=== PATIENT | female | born 1955 | race Caucasian/White ===

== ENCOUNTER 2025-05-25 12:30 | Outpatient (AMB) | payer MEDICARE, SELFPAY ==
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
[2025-05-25 12:38] VITALS: BP 126/70; PULSE 73; O2SAT 99; BMI 21.7
--- OUTSIDE RECORDS SUMMARY | 2025-05-25 13:11 | XMS_ITS | Encounter Summary ---
Author Organization [facility] Address [address] [place] [address] Care Team Providers Care Licensed [employer] App[employer] Name Role Phone Carlo Brito MD Primary Care Provider Encounter Details Date Type Department Care Team (Late st Contact Info) Description 08/11/2023 Scanned Document [facility] ENDO PROC [address] [id number] Rudi Mathur MD [address] [place] [id number] Social History Tobacco Use Types Packs/Day Years Used Date Smoking Tobacco: Never Smokeless Tobacco: Never Alcohol Use Standard Drinks/Week Comments Yes 0 (1 standard drink = 0.6 oz pur e alcohol) occasional Comments No Sex and Gender Information Value Date Recorded Sex Assigned at Female 11/04/2022 10:33 AM EDT Legal Sex Female 12:44 PM EDT Gender Identity Female 11/04/2022 10:33 AM EDT Sexual Orientation Other 11/04/2022 10 :33 AM EDT documented as of this encounter Plan of Treatment Not on file documented as of this encounter Procedures Procedure Name Priority Date/Time Associated Diagnosis Comments HX GASTROENTEROLOGY COLONOSCOPY-SCAN 08/11/2023 7:00 AM EST documented in this encounter Results * HX GASTROENTEROLOGY COLONOSCOPY-SCAN (08/11/2023 7:00 AM EST) us Rudi Mathur MD HX AMB PROCEDURES Final Resu lt documented in this encounter Visit Diagnoses Not on filedocumented in this encounter Care Teams Licensed [employer] App[employer] Relationship Specialty Start Date End Date Carlo Brito MD PCP - General Internal Medicine 04/30/17 documented as of this encounter
--- OUTSIDE RECORDS SUMMARY | 2025-05-25 13:11 | XMS_ITS | Clinical Summary ---
Author Organization [facility] Address [address] [place] [id number] Care Team Providers Care Gang Boss Name Role Phone Carlo Brito MD Primary Care Provider Allergies No known active allergies Medications citalopram (CeleXA) 20 MG tablet Take 20 mg by mouth daily. 0 Active levothyroxine (SYNTHROID, LEVOTHROID) 75 MCG tablet TAKE ONE TABLET BY MOUTH DAILY BEFORE BREAKFAST 0 Active zolpidem (AMBIEN) 10 MG tablet 1 Active ALPRAZolam (XANAX) 0.25 MG tablet TAKE 1 TABLET (0.25 MG) BY MOUTH EVERY DAY NEEDED 3 Active Active Problems No known active problems Immunizations Immunization Administration Dates Next Due Influenza High-Dose Quadriva lent,(FLUZONE HIGH-DOSE), Perservative Free IM 0.7 mL 65 years and older 05/16/2021,05/15/2020 Influenza, Quadrivalent (FLU ARIX, AFLURIA, FLULAVAL, FLUZONE) Preservative Free IM 06/04/2022 Influenza, Quadrivalent (FLU CELVAX) MDCK, Preservative Free IM 06/09/2023 Pneumococcal Conjugate 13-Valent 05/16/2021 Family History Medical History Relation Name Comments Colon polyps Brother Colon cancer Paternal Grandmother Relation Name Status Comments Brother Paternal Grandmother Social History Tobacco Use Types Packs/Day Years [...] Orientation Other 11/04/2022 10 :33 AM EDT Last Filed Vital Signs Vital Sign Reading Time Taken Comments Blood Pressure 157/81 01/16/2025 11:39 AM EDT Pulse 63 01/16/2025 11:39 AM EDT Temperature 36.1 C (96.9 F) 01/16/2025 11:39 AM EDT Respiratory Rate 14 01/16/2025 11:39 AM EDT Oxygen Saturation 100% 01/16/2025 11:39 AM EDT Inhaled Oxygen Concentration - - Weight 52.2 kg (115 lb) 01/16/2025 10:01 AM EDT Height 154.9 cm (5' 1 ) 08/11/2023 7:40 AM EST Body Mass Index 21.73 08/11/2023 7:40 AM EST Plan of Treatment Health Maintenance Due Date Last Done Comments Advance Care Planning 1955 Hepatitis C Virus Screening 1955 DTaP/Tdap/Td Vaccines (1 - Tdap) 1973 Zoster (Shingles) Vaccine (1 of 2) 2004 Pneumococcal Vaccines 50+ (2 of 2 - PCV20 or PCV21) 05/16/2022 05/16/2021 Influenza Vaccine 03/23/2025 06/13/2024, , 06/09/2023, Additional history exists COVID-19 Vaccine (2 - season) 2025 06/18/2021 DXA Bone Density (Females,Ages 65 and older) 07/09/2025 07/09/2023 Mammogram 06/14/2026 06/14/2024, 05/24, 06/04/2022, Additional history exists RSV Vaccine 60 years and older and Patients (1 - 1-dose 75+ series) 2029 Colonoscopy 08/11/2033 08/11/2023, 08/11/2023 Hepatitis B Vaccines Aged Out No long er eligible based on patient's age to complete this topic Medical Devices Implanted Type Area Hydraulic Operator Device Identifier Shelf Expiration Date Model / Serial / Lot Lens Iol 0 D +22.5 Edmundo Mod L Bcnvx 13mm 6mm Posterior - [id number] Implanted:Qty: 1 on 08/04/2017 by Roque Clement MD at [facility] [place] [employer] [id number] / [id number] / Lens Iol 0 D +21.5 Edmundo Mod L Bcnvx 13mm 6mm Posterior - [id number] Implanted:Qty: 1 on 05/25/2018 by Roque Clement MD at [facility] [place] [employer] [id number] / [id number] / Procedures Procedure Name Priority Date/Time Associated Diagnosis Comments MM MAMMO SCREENING W/ TOMOSYNTHESIS BILATERAL Routine 06/14/2024 11:40 AM EDT Encounter for screening mammogram for breast cancer HX GASTROENTEROLOGY COLONOSCOPY-SCAN 08/11/2023 7:00 AM EST DEXA BONE DENSITY AXIAL SKELETON, 1 OR MORE SITES Routine 07/09/2023 9:53 AM EST Osteoporosis, unspecified osteoporosis type, unspecified pathological fracture presence Post-menopausal from Last 3 Months or Most Recently Relevant to Health Maintenance Results * MM Breast tomosynthesis screening-Bilateral (06/14/2024 11:40 AM EDT) Anatomical Region Laterality Modality Breast Bilateral Mammography 06/14/2024 1:40 PM EDT Impressions 06/14/2024 1:41 PM EDT Impression: Stable mammogram. Routine annual screening advised. ASSESSMENT: ACR Category 1 - Negative. BREAST COMPOSITION: Category B FOLLOW-UP RECOMMENDATION: 1 year. BIRADS: A NEGATIVE MAMMOGRAM FOLLOW-UP CODES: D12 12 MONTH MAMMOGRAM FOLLOW-UP Narrative 06/14/2024 1:41 PM EDT Screening digital mammogram with CAD [id number] History: Screening Comparison: Dating back 02/13/2019 Breast composition: Scattered fibroglandular densities CAD and 3-D tomography was applied on this mammographic procedure. Findings: No new densities or suspicious microcalcifications can be identified in either breast. Carlo Brito MD G MAMMOGRAPHY ORDERABLES Final Result * HX GASTROENTEROLOGY COLONOSCOPY-SCAN (08/11/2023 7:00 AM EST) Rudi Mathur MD HX AMB PROCEDURES Final Resu lt * DEXA Bone Density axial skeleton, 1 or more sites (07/09/2023 9:53 AM EST) Anatomical Region Laterality Modality Digital Radiogra phy 07/09/2023 12:5 0 PM EST Impressions 07/09/2023 12:50 PM EST Findings and impression: Please see scanned report for data values and impression. Narrative 07/09/2023 12:50 PM EST DXA Bone Densitometry Report Indication: Bone density Procedure Note Eulogio Pike MD - 07/09/2023 DXA Bone Densitometry Report Indication: Bone density IMPRESSION: Findings and impression: Please see scanned report for data values and impression. Carlo Brito MD [facility] DXA ORDERABLES Final Re sult from Last 3 Months or Most Recently Relevant to Health Maintenance Insurance [employer] MGD MEDICARE MEDICARE PART A & B [facility] MEDICARE [facility] MEDICARE Care Teams Gang Boss Relationship Specialty Start Date End Date Carlo Brito MD PCP - General Internal Medicine 04/30/17
--- OUTSIDE RECORDS SUMMARY | 2025-05-25 13:11 | XMS_ITS | Clinical Summary ---
Author Organization [facility] [address] [facility] Address [address] [place] [address] Phone Care Team Providers Care Lock Expert Name Role Phone Carlo Brito MD Primary Care Provider [phone] Allergies No known active allergies Medications citalopram (CeleXA) 20 mg tablet Take 1 tablet (20 mg total) by mouth 1 (one) time each day. 11/19/19 25 Active levothyroxine (SYNTHROID, LEVOTHROID) 75 mcg tablet Take 1 tablet (75 mcg total) by mouth 1 (one) time each day. before breakfast 90 tablet 1 04/02/20 25 Active zolpidem (AMBIEN) 10 mg tabletIndicatio ns:Insomnia, unspecified type Take 1 tablet (10 mg total) by mouth at bedtime as needed for sleep. Max Daily Amount: 10 mg 30 tablet 04/02/20 25 Active cyanocobalamin (VITAMIN B-12) 1,000 mcg/mL injection Inject 1 mL (1,000 mcg total) under the skin every 30 (thirty) days. 3 mL 1 05/22/20 25 Active syringe with needle 1 mL 25 gauge x 1 syringe 1 each every 30 (thirty) days. 100 each 05/22/20 25 Active cyanocobalamin (VITAMIN B-12) 1,000 mcg/mL injection Inject 1 mL (1,000 mcg total) into the shoulder, thigh, or buttocks every 30 (thirty) days. 1 mL 04/27/20 25 025 Discontinued cyanocobalamin (VITAMIN B-12) 1,000 mcg/mL injection INJECT 1 ML INTO THE SHOULDER,THI GH,OR BUTTOCKS EVERY 30 DAYS 3 mL 1 05/21/20 25 025 Discontinued(Re order) syringe with needle 1 mL 25 gauge x 1 syringe 025 Discontinued(Re order) Hospital, Clinic, or Other Facility Administered Medication Ordered Dose Route Frequency Start Date End Date Status cyanocobalamin (VITAMIN B-12) injection 1,000 mcgIndications:B12 deficiency 1000 mcg IM Every 30 days 03/02/2025 05/21/2025 Discontinue d Active Problems Problem Noted Date Diagnosed Date Elevated alkaline phosphatase level 03/08/2025 B12 deficiency 02/02/2025 Assessment & Plan (03/02/2025 11:41 AM EDT): Orders: cyanocobalamin (VITAMIN B-12) injection 1,000 mcg Assessment & Plan (02/02/2025 11:55 AM EDT): Orders: cyanocobalamin (VITAMIN B-12) injection 1,000 mcg Follow-up in 1 month Adrenal nodule (CMS/HCC V24) 01/23/2025 Duodenal diverticulum 01/23/2025 Pelvic pressure in female 01/09/2025 Nonintractable headache 01/09/2025 Right upper quadrant abdominal pain 01/09/2025 Encounters Date Type Department Care Team Description 05/22/2025 Telephone Primary [facility] - [facility] [address] [place] [address] Sharon Sampson MA 04/27/2025 1:45 PM EDT Clinical Support Primary [facility] - [facility] [address] [place] [address] 04/02/2025 Telephone Primary [facility] - [facility] [address] [place] [address] Beatris Luz MA 03/08/2025 Telephone Primary [facility] - [facility] [address] [place] [address] Carlo Brito MD 03/02/2025 10:15 AM EDT Office Visit Primary [facility] - [facility] [address] [place] [phone] Carlo Brito MD B12 deficiency; Viral syndrome; Autoinflammatory syndrome, unspecified ([facility] V24, [facility] V28) from Last 3 Months Immunizations Immunization Administration Dates Next Due Influenza trivalent, with pr eservative (Fluzone; Afluria) 6mo and older 06/13/2024 Pneumococcal Conjugate 05/16/2021 Pneumococcal conjugate 20 va lent (Prevnar 20, PCV 20) 2mo and older 05/16/2021 Tdap Tetanus diptheria acell ular pertussis (Boostrix; Adacel) 7yo and older 12/25/2014 Surgical History Surgery Date Site/Laterality Comments APPENDECTOMY CATARACT EXTRACTION 01/21/2017 - 02/19/2017 Right CERVICAL DISC SURGERY CHOLECYSTECTOMY ADENOIDECTOMY TONSILLECTOMY TOTAL ABDOMINAL HYSTERECTOMY W/ BILATERAL SALPINGOOPHORECTOMY COLECTOMY 05/23/2013 - 06/22/2013 Medical History Medical History Date Comments Diverticulosis IBS (irritable bowel syndrome) Hypothyroidism Tinnitus Insomnia Ambien dependent Family History Medical History Relation Name Comments Hyperlipidemia Brother 1 Hypertension Brother 1 Diabetes type II Brother 2 Diabetes type II Father Heart attack Mother Hypothyroidism Mother Relation Name Status Comments Brother 1 Brother 2 Alive Brother 3 Alive Brother 4 Alive Father Mother Social History Tobacco Use Types Packs/Day Years Used Date Smoking Tobacco: Former Cigarettes S tarted: 1982 Smokeless Tobacco: Never Tobacco Cessation:Counseling Given: Not Answered Alcohol Use Standard Drinks/Week Comments Yes 1 (1 standard drink = 0.6 oz pur e alcohol) social Comments Unknown Sex and Gender Information Value Date Recorded Sex Assigned at Not on file Legal Sex Female 9:05 AM EDT Gender Identity Not on file Sexual Orientation Not on file 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 Not on file Not on brisa e Obstetrics History Last Filed Vital Signs Vital Sign Reading Time Taken Comments Blood Pressure 122/63 03/02/2025 10:15 AM EDT Pulse 78 03/02/2025 10:15 AM EDT Temperature 36.8 C (98.3 F) 03/02/2025 10:15 AM EDT Respiratory Rate - - Oxygen Saturation 99% 03/02/2025 10: 15 AM EDT Inhaled Oxygen Concentration - - Weight 52.6 kg (115 lb 14.4 oz) 025 10:15 AM EDT Height 153.7 cm (5' 0.5 ) 12/15/2024 8:42 AM EDT Body Mass Index 22.26 12/15/2024 8:42 AM EDT Plan of Treatment Health Maintenance Due Date Last Done Comments Zoster Vaccines (1 of 2) 2004 Falls Risk Assessment 12/08/2024 12/09/2023 Social Influencers of Health Screening 12/08/2024 12/09/2023 Medicare Annual Wellness Visit 12/19/2024 12/20/2023, 12/09/2023 DTaP,Tdap,and Td Vaccines (2 - Td or Tdap) 12/25/2024 12/25/2014 COVID-19 Vaccine (2 - season) 2025 06/18/2021 Influenza Vaccine (#1) 2025 , 06/09/2023, 06/04/2022, Additional history exists Breast Cancer Screening 06/14/2025 06/14/2024, 06/14 RSV Immunization Adult Patients (1 - 1-dose 75+ series) 2029 Cholesterol Screening (Lipid Panel) 12/15/2029 12/15/2024, 12/09/2023 Osteoporosis Screening (Bone Density Screening) 07/09/2033 07/09/2023, 07/09/2023 Colorectal Cancer Screening: Colonoscopy 08/11/2033 08/11/2023 Hepatitis C Screening Completed 06/11/2015, 015 Pneumococcal Vaccine: 50+ Years Completed 05/16/2021 Depression Screening Completed 12/15/2024 HIB Vaccines Aged Out No longer eligi ble based on patient's age to complete this topic HPV Vaccines Aged Out No longer eligi ble based on patient's age to complete this topic Hepatitis A Vaccines Aged Out No long er eligible based on patient's age to complete this topic Hepatitis B Vaccines Aged Out No long er eligible based on patient's age to complete this topic IPV Vaccines Aged Out No longer eligi ble based on patient's age to complete this topic MMR Vaccines Aged Out No longer eligi ble based on patient's age to complete this topic Meningococcal ACWY Vaccine Aged Out N o longer eligible based on patient's age to complete this topic Meningococcal B Vaccine Aged Out No l onger eligible based on patient's age to complete this topic RSV Immunization Patients Under 20 months Aged Out No longer eligible based on patient's age to complete this topic Varicella Vaccines Aged Out No longer eligible based on patient's age to complete this topic Procedures Procedure Name Priority Date/Time Associated Diagnosis Comments EHRLICHIA AND ANAPLASMA SPECIES BY REAL-TIME PCR Routine 03/02/2025 4:03 PM EDT Adult general medical examination Viral syndrome Autoinflammatory syndrome, unspecified ([facility] V24, [facility] V28) URINALYSIS WITH REFLEX MICROSCOPIC Routine 03/02/2025 10:57 AM EDT Adult general medical examination BABESIA MICROTI ANTIBODIES, IGG AND IGM Routine 03/02/2025 10:57 AM EDT Viral syndrome BORRELIA BURGDORFERI ANTIBODIES IGG AND IGM,WESTERN BLOT Routine 03/02/2025 10:57 AM EDT Viral syndrome THYROID STIMULATING HORMONE Routine 03/02/2025 10:57 AM EDT Viral syndrome Autoinflammatory syndrome, unspecified ([facility] V24, [facility] V28) COMPREHENSIVE METABOLIC PANEL Routine 03/02/2025 10:57 AM EDT Viral syndrome COMPLETE BLOOD COUNT Routine 03/02/2025 10:57 AM EDT Viral syndrome URINALYSIS WITH REFLEX MICROSCOPIC Routine 03/02/2025 10:57 AM EDT Adult general medical examination LIPID PANEL WITH REFLEX TO DIRECT LDL Routine 12/15/2024 9:35 AM EDT Adult general medical examination EXTERNAL MAMMOGRAM REPORT Routine 06/14/2024 9:17 AM EDT EXTERNAL COLONOSCOPY REPORT Routine 08/11/2023 9:10 AM EST HM HEPATITIS C SCREENING Routine 05/23/2015 from Last 3 Months or Most Recently Relevant to Health Maintenance Results * Ehrlichia and anaplasma species, PCR (03/02/2025 4:03 PM EDT) Anaplasma phagocytophilum Negative Negative 03/05/2025 4:[address] [facility] Ehrlichia chaffeensis Negative Negative 03/05/2025 4:[address] [facility] Ehrlichia ewingii/canis Negative Negative 03/05/2025 4:[address] [facility] Ehrlichia muris eauclairensis Negative Negative 03/05/2025 4:[address] [facility] Comment: ADDITIONAL INFORMATION This test was developed and its performance characteristics determined by [facility] in a manner consistent with CLIA requirements. This test has not been cleared or approved by the U.S. Food and Drug Administration. Test Performed by: [place] [address] Service Unit Operator: Franco Evans Ph.D.; CLIA# [id number] Blood Venous blood specimen / Unknown Venipuncture / Unknown 03/02/2025 4:03 PM EDT 03/02/2025 4:03 PM EDT us Carlo Brito MD LAB MICROBIOLOGY - GENERAL ORDERABLES Final Result [facility] * (ABNORMAL) Urinalysis with reflex microscopic (03/02/2025 10:57 AM EDT) Color, Urine Yellow Yellow LAB URINALYSIS - AUTOMATED METHOD 03/02/2025 3:49 PM EDT [facility] Clarity, Urine Clear Clear LAB URINALYSIS - AUTOMATED METHOD 03/02/2025 3:49 PM EDT [facility] Specific [place] Urine 1.025 1.005 - 1.030 LAB URINALYSIS - AUTOMATED METHOD 03/02/2025 3:49 PM EDT [facility] pH, Urine 7.5 5.0 - 8.0 pH LAB URINALYSIS - AUTOMATED METHOD 03/02/2025 3:49 PM EDT [facility] Leukocytes, Urine 25(A) Negative WBCs/mcL LAB URINALYSIS - AUTOMATED METHOD 03/02/2025 3:49 PM EDT [facility] Nitrite, Urine Negative Negative LAB URINALYSIS - AUTOMATED METHOD 03/02/2025 3:49 PM EDT [facility] Protein, Urine Negative Negative mg/dL LAB URINALYSIS - AUTOMATED METHOD 03/02/2025 3:49 PM EDT [facility] Glucose, Urine Normal Normal mg/dL LAB URINALYSIS - AUTOMATED METHOD 03/02/2025 3:49 PM EDT [facility] Ketones, Urine Negative Negative, <10 mg/dL LAB URINALYSIS - AUTOMATED METHOD 03/02/2025 3:49 PM EDT [facility] Urobilinogen, Urine Normal Normal (<2.0) mg/dL LAB URINALYSIS - AUTOMATED METHOD 03/02/2025 3:49 PM EDT [facility] Bilirubin, Urine Negative Negative mg/dL LAB URINALYSIS - AUTOMATED METHOD 03/02/2025 3:49 PM EDT [facility] Blood, Urine Negative <=1.0 mg/dL LAB URINALYSIS - AUTOMATED METHOD 03/02/2025 3:49 PM EDT [facility] Urine Urine specimen obtained by clean catch procedure / Unknown Non-blood Collection / Unknown 03/02/2025 10:57 AM EDT 03/02/2025 10:57 AM EDT us Carlo Brito MD LAB URINE ORDERABLES Final Result [facility] [address] [place] [address], * Borrelia burgdorferi antibodies IgG and IgM, western blot (03/02/2025 10:57 AM EDT) Lyme Disease Ab (IgG), Blot Negative Negative 03/07/2025 11:49 AM EDT [facility] Comment: 18 kD (IgG) Band Nonreactive 23 kD (IgG) Band Nonreactive 28 kD (IgG) Band Nonreactive 30 kD (IgG) Band Nonreactive 39 kD (IgG) Band Nonreactive 41 kD (IgG) Band Nonreactive 45 kD (IgG) Band Reactive 58 kD (IgG) Band Nonreactive 66 kD (IgG) Band Reactive 93 kD (IgG) Band Nonreactive Lyme Disease Ab (IgM), Blot Negative Negative 03/07/2025 11:49 AM EDT [facility] Comment: 23 kD (IgM) Band Nonreactive 39 kD (IgM) Band Nonreactive 41 kD (IgM) Band Nonreactive CDC criteria require >=5 bands for IgG or >=2 bands for IgM for the Immunoblot to be considered positive. Bands may be detected in patients without Lyme disease, and patterns not meeting the CDC criteria should be interpreted with caution. Immunoblot should be ordered only on specimens that are positive or equivocal by a FDA-licensed Lyme disease antibody screening test. Caution must be used in supporting a diagnosis of B. burgdorferi infection when sera are Immunoblot IgM positive and Immunoblot IgG negative after the initial 4 week period from onset. Because the likelihood of a false-positive test result is high for these individuals, a positive IgM test alone is not recommended for use in determining active disease in persons with illness longer than one month duration. Test performed at [facility], [address] , [place] [address] Alysha Mensah MD, PhD - Laundry Assistant Blood Venous blood specimen / Unknown Venipuncture / Unknown 03/02/2025 10:57 AM EDT 03/02/2025 10:57 AM EDT us Carlo Brito MD LAB BLOOD ORDERABLES Final Result [facility] [address] [place] [address] * Babesia microti antibodies, IGG and IGM (03/02/2025 10:57 AM EDT) Babesia microti Ab (IgG) <1:64 <1:64 03/06/2025 6:29 PM EDT [facility] Babesia microti Ab (IgM) <1:20 <1:20 03/06/2025 6:29 PM EDT [facility] Babesia Interpretation SEE BELOW 03/06/2025 6:29 PM EDT [facility] Comment: Antibody Not Detected Elevated antibody levels to B. microti indicate exposure to the organism. Human babesiosis infection is transmitted by the bite of an infected Ixodes tick or less frequently from transfusion with blood from an infected donor. Definitive diagnosis is made by identifying intraerythrocytic organisms in peripheral blood. In patients with low parasitemia, antibody detection by IFA is recommended. IgG levels greater than or equal to 1:1024 can be detected in acute phase patients with parasites in blood smears. The IFA assay can be used as a seroepidemiologic tool to study the frequency and distribution of B. microti in endemic areas especially in persons with mixed infections also involving Borrelia burgdorferi. This test was developed and its analytical performance characteristics have been determined by [employer] [place] [place]. It has not been cleared or approved by the U.S. Food and Drug Administration. This assay has been validated pursuant to the CLIA regulations and is used for clinical purposes. Blood Venous blood specimen / Unknown Venipuncture / Unknown 03/02/2025 10:57 AM EDT 03/02/2025 10:57 AM EDT Narrative [facility] - 03/06/2025 6:29 PM EDT Performing Organization Information: Site ID: [id number] Name: [id number] Address: [address] [place] [address] Director: Matthew Bryant MD PhD us Carlo Brito MD LAB BLOOD ORDERABLES Final Result [facility] [place] [id number] [place], [place] [phone] * (ABNORMAL) Complete blood count (03/02/2025 10:57 AM EDT) [facility] WBC 5.0 4.0 - 10.5 K/mcL LAB HEMETOLOGY METHOD 03/02/2025 3:49 PM EDT [facility] RBC 4.44 4.20 - 5.40 M/mcL LAB HEMETOLOGY METHOD 03/02/2025 3:49 PM EDT [facility] Hemoglobin 12.7 12.5 - 16.0 g/dL LAB HEMETOLOGY METHOD 03/02/2025 3:49 PM EDT [facility] Hematocrit 39.8 37.0 - 47.0 % LAB HEMETOLOGY METHOD 03/02/2025 3:49 PM EDT [facility] MCV 89.6 78.0 - 100.0 FL LAB HEMETOLOGY METHOD 03/02/2025 3:49 PM EDT [facility] MCH 28.6 27.0 - 31.0 pcg LAB HEMETOLOGY METHOD 03/02/2025 3:49 PM EDT [facility] MCHC 31.9(L) 32.0 - 36.0 g/dL LAB HEMETOLOGY METHOD 03/02/2025 3:49 PM EDT [facility] RDW 13.1 11.5 - 14.0 % LAB HEMETOLOGY METHOD 03/02/2025 3:49 PM EDT [facility] Platelets 337 150 - 450 K/mcL LAB HEMETOLOGY METHOD 03/02/2025 3:49 PM EDT [facility] MPV 10.1 8.3 - 11.8 FL LAB HEMETOLOGY METHOD 03/02/2025 3:49 PM EDT [facility] Blood Venous blood specimen / Unknown Venipuncture / Unknown 03/02/2025 10:57 AM EDT 03/02/2025 10:57 AM EDT us Carlo Brito MD LAB BLOOD ORDERABLES Final Result [facility] [address] [place] [address], * Thyroid stimulating hormone (03/02/2025 10:57 AM EDT) TSH 1.94 0.55 - 4.78 mcIU/mL LAB CHEMISTRY METHOD 03/02/2025 4:04 PM EDT [facility] Blood Venous blood specimen / Unknown Venipuncture / Unknown 03/02/2025 10:57 AM EDT 03/02/2025 10:57 AM EDT Carlo Brito MD LAB BLOOD ORDERABLES Final Result Performing Organization Address City/[facility]/ZIP Co de Phone Number [facility] [address] [place] [address], * (ABNORMAL) Comprehensive metabolic panel (03/02/2025 10:57 AM EDT) Pathologist [facility] Sodium 144 136 - 145 mmol/L LAB CHEMISTRY METHOD 03/02/2025 4:01 PM EDT [facility] Potassium 3.9 3.5 - 5.1 mmol/L LAB CHEMISTRY METHOD 03/02/2025 4:01 PM EDT [facility] Chloride 104 98 - 107 mmol/L LAB CHEMISTRY METHOD 03/02/2025 4:01 PM EDT [facility] CO2 30 20 - 31 mmol/L LAB CHEMISTRY METHOD 03/02/2025 4:01 PM EDT [facility] Anion Gap 10 5 - 14 LAB CHEMISTRY METHOD 03/02/2025 4:01 PM EDT [facility] Glucose 99 70 - 199 mg/dL LAB CHEMISTRY METHOD 03/02/2025 4:01 PM EDT [facility] BUN 23 9 - 23 mg/dL LAB CHEMISTRY METHOD 03/02/2025 4:01 PM [facility] Creatinine 0.69 0.55 - 1.02 mg/dL LAB CHEMISTRY METHOD 03/02/2025 4:01 PM [facility] eGFR 93 >=60 mL/min/1. 73m2 LAB CHEMISTRY METHOD 03/02/2025 4:01 PM [facility] Comment:Calculation based on the Chronic Kidney Disease Epidemiology Collaboration (CKD-EPI) equation refit without adjustment for race. BUN/Creatinine Ratio 33.3(H) 12.0 - 20.0 LAB CHEMISTRY METHOD 03/02/2025 4:01 PM [facility] Calcium 9.3 8.7 - 10.4 mg/dL LAB CHEMISTRY METHOD 03/02/2025 4:01 PM [facility] AST (SGOT) 35(H) <34 unit/L LAB CHEMISTRY METHOD 03/02/2025 4:01 PM [facility] ALT (SGPT) 46 10 - 49 unit/L LAB CHEMISTRY METHOD 03/02/2025 4:01 PM [facility] Alkaline Phosphatase 165(H) 46 - 116 unit/L LAB CHEMISTRY METHOD 03/02/2025 4:01 PM [facility] Total Protein 7.1 5.7 - 8.2 g/dL LAB CHEMISTRY METHOD 03/02/2025 4:01 PM [facility] Globulin, Total 2.4 2.3 - 3.5 g/dL LAB CHEMISTRY METHOD 03/02/2025 4:01 PM [facility] A/G Ratio 2.0(H) 1.0 - 1.7 LAB CHEMISTRY METHOD 03/02/2025 4:01 PM [facility] Total Bilirubin 0.3 0.2 - 1.1 mg/dL LAB CHEMISTRY METHOD 03/02/2025 4:01 PM [facility] Albumin 4.7 3.2 - 4.8 g/dL LAB CHEMISTRY METHOD 03/02/2025 4:01 PM EDT [facility] Blood Venous blood specimen / Unknown Venipuncture / Unknown 03/02/2025 10:57 AM EDT 03/02/2025 10:57 AM EDT us Carlo Brito MD LAB BLOOD ORDERABLES Final Result [facility] [address] [place] [address], [place] [phone] * (ABNORMAL) Lipid panel with reflex to direct LDL (12/15/2024 9:35 AM EDT) Cholesterol 203(H) 25 - 200 mg/dL LAB CHEMISTRY METHOD 12/15/2024 3:54 PM EDT [facility] Triglycerides 82 See Comment mg/dL LAB CHEMISTRY METHOD 12/15/2024 3:54 PM EDT [facility] HDL 70 >60 mg/dL LAB CHEMISTRY METHOD 12/15/2024 3:54 PM EDT [facility] LDL Calculated 117(H) 0 - 99 mg/dL LAB CHEMISTRY METHOD 12/15/2024 3:54 PM EDT [facility] VLDL Cholesterol Erasmo 16.4 mg/dL LAB CHEMISTRY METHOD 12/15/2024 3:54 PM EDT [facility] Non HDL Chol. (LDL+VLDL) 133 mg/dL LAB CHEMISTRY METHOD 12/15/2024 3:54 PM EDT [facility] Chol/HDL Ratio 2.9 LAB CHEMISTRY METHOD 12/15/2024 3:54 PM EDT [facility] Blood Venous blood specimen / Unknown Venipuncture / Unknown 12/15/2024 9:35 AM EDT 12/15/2024 9:35 AM EDT Narrative [facility] - 12/15/2024 3:54 PM EDT CHOLESTEROL REFERENCE RANGES: <200 mg/dL DESIRABLE 200-240 mg/dL BORDERLINE HIGH >240 mg/dL HIGH TRIGLYCERIDE REFERENCE VALUES: <150 mg/dL DESIRABLE 150-199 mg/dL BORDERLINE HIGH >200 mg/dL HIGH HDL REFERENCE VALUES: >60 mg/dL DESIRABLE <40 mg/dL HIGH RISK LDL Reference Ranges <100 mg/dL Desirable 100 - 129 mg/dL Low Risk 130 - 159 mg/dL Borderline High Risk 160 - 189 mg/dL High Risk >189 mg/dL Very High Risk RISK ASSESSMENT MALE: 12 AVERAGE: 3.43 AVERAGE: 4.97 2X AVERAGE: 9.55 3X AVERAGE: 23.39 FEMALE: 12 AVERAGE: 3.27 AVERAGE: 4.44 2X AVERAGE: 7.05 3X AVERAGE: 11.04 Carlo Brito MD LAB BLOOD ORDERABLES Final Result [facility] [address] [place] [address], * External Mammogram Report (06/14/2024 9:17 AM EDT) Anatomical Region Laterality Modality Mammography Historical Provider IMG BI PROCEDURES Final R esult * External Colonoscopy Report (08/11/2023 9:10 AM EST) Anatomical Region Laterality Modality Endoscopy Historical Provider GI~PROCEDURE ORDERABLES F inal Result * Hepatitis C Screening (05/23/2015) Hepatitis C Screening neg Historical Provider HEALTH MAINTENANCE Final Result from Last 3 Months or Most Recently Relevant to Health Maintenance Insurance [employer] Member Subscriber Plan / Payer (Ef fective 2021-Present) Name:Juliana Li Relation to Subscriber:Self Name:Juliana Li Payer ID:[id number] ([facility]) Type:Not on file Address: [facility] [id number] [place] [phone] Care Teams Lock Expert Relationship Specialty Start Date End Date Carlo Brito MD [address] [place] [address] PCP - General Internal Medicine 11/22/24
--- OUTSIDE RECORDS SUMMARY | 2025-05-25 13:11 | XMS_ITS | Encounter Summary ---
Author Organization [facility] Address [address] [place] [address] Care Team Providers Care Parent Coach Name Role Phone Carlo Brito MD Primary Care Provider [phone] Reason for Visit * Reason Onset Date Comments Med Refill 05/22/2025 Encounter Details Date Type Department Care Team (Late st Contact Info) Description 05/22/2025 Telephone Primary Care - [address] [phone] Sharon Sampson MA Social History Tobacco Use Types Packs/Day Years Used Date Smoking Tobacco: Former Cigarettes S tarted: 1982 Smokeless Tobacco: Never Alcohol Use Standard Drinks/Week Comments Yes 1 (1 standard drink = 0.6 oz pur e alcohol) social Comments Unknown Sex and Gender Information Value Date Recorded Sex Assigned at Not on file Legal Sex Female 9:05 AM EDT Gender Identity Not on file Sexual Orientation Not on file 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 100 each 05/22/2025 cyanocobalamin (VITAMIN B-12) 1,000 mcg/mL injection Inject 1 mL (1,000 mcg total) under the skin every 30 (thirty) days. 3 mL 1 05/22/2025 documented in this encounter Progress Notes * Adrianna Velazquez MA - 05/22/2025 10:37 AM EDT Rx sent as requested * Sharon Sampson MA - 05/22/2025 10:31 AM EDT cyanocobalamin (VITAMIN B-12) 1,000 mcg/mL injection [[id number] Patient received the injection but she needs the needles/syringes called as well. [id number] - [place] - [address] [place] [address] documented in this encounter Plan of Treatment Not on file documented as of this encounter Visit Diagnoses Not on filedocumented in this encounter Discontinued Medications Medication Sig Discontinue Reason Start Date End Da te cyanocobalamin (VITAMIN B-12) 1,000 mcg/mL injection INJECT 1 ML INTO THE SHOULDER,THIGH,OR BUTTOCKS EVERY 30 DAYS Reorder 05/21/2025 05/22/2025 syringe with needle 1 mL 25 gauge x 1 syringe Reorder 05/22/2025 documented as of this encounter Historical Medications * This list may reflect changes made after this encounter. Medication Sig Dispense Quantity Refills Last Filled Start D ate End Date syringe with needle 1 mL 25 gauge x 1 syringe 05/22/2025 added in this encounter Additional Health Concerns Assessment Noted Time PHQ-9 Depression Total Score: 0 12/16/19 25 8:45 AM EDT documented as of this encounter Care Teams Parent Coach Relationship Specialty Start Date End Date Carlo Brito MD [address] [place] [address] PCP - General Internal Medicine 11/22/24 documented as of this encounter
--- OUTSIDE RECORDS SUMMARY | 2025-05-25 13:11 | XMS_ITS ---
Author Name [facility] Organization Unknown Results Test Name/Text Value Interpretation Date Range Source E muris eaucl groEL Bld Ql CHRISTELLE+non-prb Negative 03/05/2025 - [facility] E chaff groEL Bld Ql CHRISTELLE+non-probe Negative 03/05/2025 - [facility] E canis+ewin groEL Bld Ql CHRISTELLE+non-probe Negative 03/05/2025 - [facility] A phago groEL Bld Ql CHRISTELLE+non-probe Negative 03/05/2025 - [facility] B burgdor IgG Ser Ql IB Negative 03/07/2025 - [facility] B burgdor IgM Ser Ql IB Negative 03/07/2025 - [facility] B microti IgG+IgM Ser-Imp SEE BELOW 03/06/2025 [facility] B microti IgM Titr Ser <1:20 03/06/2025 - [facility] B microti IgG Titr Ser <1:64 03/06/2025 - [facility] TSH SerPl DL<=0.005 mIU/L-aCnc 1.94 mcIU/mL 03/02/2025 0.55 - 4.78 [facility] CO2 SerPl-sCnc 30.0 mmol/L 03/02/2025 20 - 31 [facility] Bilirub SerPl-mCnc 0.3 mg/dL 03/02/2025 0.2 - 1.1 [facility] Anion Gap SerPl Calc-sCnc 10.0 03/02/2025 5 - 14 [facility] Prot SerPl-mCnc 7.1 g/dL 03/02/2025 5.7 - 8.2 [facility] Creat SerPl-mCnc 0.69 mg/dL 03/02/2025 0.55 - 1.02 [facility] Calcium SerPl-mCnc 9.3 mg/dL 03/02/2025 8.7 - 10.4 [facility] ALP SerPl-cCnc 165.0 unit/L Above high normal 03/02/2025 46 - 116 [facility] BUN SerPl-mCnc 23.0 mg/dL 03/02/2025 9 - 23 [facility] Chloride SerPl-sCnc 104.0 mmol/L 03/02/2025 98 - 1 07 [facility] AST SerPl-cCnc 35.0 unit/L Above high normal 03/02/2025 - 34 [facility] eGFRcr SerPlBld CKD-EPI 2020 93.0 mL/min/1.73m2 03/02/2025 - [facility] Potassium SerPl-sCnc 3.9 mmol/L 03/02/2025 3.5 - 5.1 [facility] Sodium SerPl-sCnc 144.0 mmol/L 03/02/2025 136 - 14 5 [facility] ALT SerPl-cCnc 46.0 unit/L 03/02/2025 10 - 49 [facility] Albumin SerPl-mCnc 4.7 g/dL 03/02/2025 3.2 - 4.8 [facility] BUN/Creat SerPl 33.3 Above high normal 03/02/2025 12 - 20 [facility] Globulin Ser Calc-mCnc 2.4 g/dL 03/02/2025 2.3 - 3.5 [facility] Glucose SerPl-mCnc 99.0 mg/dL 03/02/2025 70 - 199 [facility] Albumin/Glob SerPl 2.0 Above high normal 03/02/2025 1 - 1.7 [facility] MCH RBC Qn Auto 28.6 pcg 03/02/2025 27 - 31 [facility] MCHC RBC Auto-EntMCnc 31.9 g/dL Below low normal 03/02/2025 32 - 36 [facility] PMV Bld Auto 10.1 FL 03/02/2025 8.3 - 11.8 [facility] Hgb Bld-mCnc 12.7 g/dL 03/02/2025 12.5 - 16 [facility] Platelet # Bld Auto 337.0 K/mcL 03/02/2025 150 - 4 50 [facility] RBC # Bld Auto 4.44 M/mcL 03/02/2025 4.2 - 5.4 [facility] WBC # Bld Auto 5.0 K/mcL 03/02/2025 4 - 10.5 [facility] RDW RBC Auto 13.1 % 03/02/2025 11.5 - 14 [facility] Hct VFr Bld Auto 39.8 % 03/02/2025 37 - 47 [facility] RBC Auto 89.6 FL 03/02/2025 78 - 100 [facility] N pH Ur 7.5 pH 03/02/2025 5 - 8 [facility] N Bilirub Ur Ql Negative 03/02/2025 - [facility] Glucose Ur Ql Normal 03/02/2025 - [facility] Leukocyte esterase Ur Ql Strip 25.0 WBCs/mcL Abnormal 03/02/2025 - [facility] Sp Gr Ur 1.025 03/02/2025 1.005 - 1.03 [facility] Nitrite Ur Ql Negative 03/02/2025 - [facility] Color Ur Yellow 03/02/2025 - [facility] N Prot Ur Strip-mCnc Negative 03/02/2025 - [facility] Hgb Ur Ql Negative 03/02/2025 - [facility] N Clarity Ur Clear 03/02/2025 - [facility] AN Ketones Ur-mCnc Negative 03/02/2025 - [facility] Urobilinogen Ur-mCnc Normal 03/02/2025 - [facility] Lymphocytes num Bld Auto 1.26 Thou/uL Below low normal 01/16/2025 1.5 - 4.5 [facility] Imm Granulocytes num Bld Auto <0.04 Thou/uL 01/16/2025 0 - 0.1 [facility] PMV Bld Auto 10.1 fL 01/16/2025 7.5 - 12.5 [facility] RBC num Bld Auto 4.35 Mil/uL 01/16/2025 4 - 5.4 [facility] Hct VFr Bld Auto 39.0 % 01/16/2025 35 - 47 HH CCT Monocytes num Bld Auto 0.43 Thou/uL 01/16/2025 0.2 - 1.5 [facility] Monocytes/leuk NFr Bld Auto 10.3 % 01/16/2025 [facility] Basophils/leuk NFr Bld Auto 0.7 % 01/16/2025 [facility] MCHC RBC Auto-mCnc 32.6 g/dL 01/16/2025 30 - 36 [facility] MCV RBC Auto 90.0 fL 01/16/2025 80 - 100 [facility] Imm Granulocytes/leuk NFr Bld Auto 0.0 % 01/16/2025 [facility] Lymphocytes/leuk NFr Bld Auto 30.1 % 01/16/2025 [facility] Neutrophils num Bld Auto 2.38 Thou/uL 01/16/2025 2 - 7.5 [facility] Platelet num Bld Auto 238.0 Thou/uL 01/16/2025 150 - 450 [facility] WBC num Bld Auto 4.2 Thou/uL 01/16/2025 4 - 11 [facility] Basophils num Bld Auto <0.04 Thou/uL 01/16/2025 0 - 0.2 [facility] Neutrophils/leuk NFr Bld Auto 56.8 % 01/16/2025 [facility] Eosinophil num Bld Auto 0.09 Thou/uL 01/16/2025 0 - 0.7 [facility] Hgb Bld-mCnc 12.7 g/dL 01/16/2025 11.7 - 15.7 [facility] T MCH RBC Qn Auto 29.2 pg 01/16/2025 27 - [address] Eosinophil/leuk NFr Bld Auto 2.1 % 01/16/2025 [facility] RDW RBC Auto-Rto 13.4 % 01/16/2025 11.5 - 14.5 [facility] ISTAT CREATININE 0.7 mg/dL 01/16/2025 0.4 - 1.1 HH CCT ISTAT ESTIMATED GFR >90.0 01/16/2025 59 - [facility] ISTAT Glucose 97.0 mg/dL 01/16/2025 65 - 99 [facility] T ISTAT TCO2, Venous 24.0 mmol/L 01/16/2025 22 - 33 [facility] ISTAT Sodium 143.0 mmol/L 01/16/2025 136 - [address] ISTAT Potassium 3.8 mmol/L 01/16/2025 3.4 - 5.3 HH CCT ISTAT BUN 25.0 mg/dL Above high normal 01/16/2025 8 - 21 [facility] ISTAT Chloride 106.0 mmol/L 01/16/2025 98 - 107 H [facility] AST SerPl-cCnc 25.0 unit/L 01/09/2025 - 34 [facility] Glucose SerPl-mCnc 85.0 mg/dL 01/09/2025 70 - 199 [facility] ALP SerPl-cCnc 69.0 unit/L 01/09/2025 46 - 116 [facility] BUN SerPl-mCnc 25.0 mg/dL Above high normal 01/09/2025 9 - 2 3 [facility] Prot SerPl-mCnc 7.0 g/dL 01/09/2025 5.7 - 8.2 [facility]_ [facility] Anion Gap SerPl Calc-sCnc 9.0 01/09/2025 5 - 14 [facility] BUN/Creat SerPl 37.3 Above high normal 01/09/2025 12 - 20 [facility] Creat SerPl-mCnc 0.67 mg/dL 01/09/2025 0.55 - 1.02 [facility] eGFRcr SerPlBld CKD-EPI 2020 94.0 mL/min/1.73m2 01/09/2025 - [facility] Albumin SerPl-mCnc 4.6 g/dL 01/09/2025 3.2 - 4.8 [facility] Potassium SerPl-sCnc 4.1 mmol/L 01/09/2025 3.5 - 5.1 [facility] Calcium SerPl-mCnc 9.3 mg/dL 01/09/2025 8.7 - 10.4 [facility] Bilirub SerPl-mCnc 0.4 mg/dL 01/09/2025 0.2 - 1.1 [facility] ALT SerPl-cCnc 13.0 unit/L 01/09/2025 10 - 49 [facility] Chloride SerPl-sCnc 107.0 mmol/L 01/09/2025 98 - 1 07 [facility] Albumin/Glob SerPl 1.9 Above high normal 01/09/2025 1 - 1.7 [facility] CO2 SerPl-sCnc 30.0 mmol/L 01/09/2025 20 - 31 CT [facility] Globulin Ser Calc-mCnc 2.4 g/dL 01/09/2025 2.3 - 3.5 [facility] Sodium SerPl-sCnc 146.0 mmol/L Above high normal 01/09/2025 136 - 145 [facility] Lipase SerPl-cCnc 38.0 unit/L 01/09/2025 12 - 53 [facility] Monocytes # Bld Auto 0.44 K/mcL 01/09/2025 0.1 - 1.2 [facility] Platelet # Bld Auto 249.0 K/mcL 01/09/2025 150 - 4 50 [facility] Hgb Bld-mCnc 12.9 g/dL 01/09/2025 12.5 - 16 [facility] nRBC Bld-Rto 0.0 % 01/09/2025 0 - 1 [facility] Hct VFr Bld Auto 39.9 % 01/09/2025 37 - 47 [facility] Neutrophils NFr Bld Auto 58.9 % 01/09/2025 25 - 62 [facility] RBC # Bld Auto 4.47 M/mcL 01/09/2025 4.2 - 5.4 [facility] Basophils # Bld Auto 0.04 K/mcL 01/09/2025 0 - 0.2 [facility] RBC Auto 89.3 FL 01/09/2025 78 - 100 [facility] Monocytes NFr Bld Auto 8.3 % 01/09/2025 2 - 12 [facility] Eosinophil # Bld Auto 0.12 K/mcL 01/09/2025 0 - 0.6 [facility] Neutrophils # Bld Auto 3.14 K/mcL 01/09/2025 1.5 - 7 [facility] Imm Granulocytes NFr Bld Auto 0.2 % 01/09/2025 0 - 1 [facility] Imm Granulocytes # Bld Auto 0.01 K/mcL 01/09/2025 - 0.1 [facility] RDW RBC Auto 13.4 % 01/09/2025 11.5 - 14 [facility] Lymphocytes # Bld Auto 1.57 K/mcL 01/09/2025 1 - 5 [facility] PMV Bld Auto 10.4 FL 01/09/2025 8.3 - 11.8 [facility] MCHC RBC Auto-EntMCnc 32.3 g/dL 01/09/2025 32 - 36 [facility] Eosinophil NFr Bld Auto 2.3 % 01/09/2025 0 - 6 [facility] Basophils NFr Bld Auto 0.8 % 01/09/2025 0 - 2 [facility] MCH RBC Qn Auto 28.9 pcg 01/09/2025 27 - 31 [facility] Lymphocytes NFr Bld Auto 29.5 % 01/09/2025 20 - 48 [facility] WBC # Bld Auto 5.3 K/mcL 01/09/2025 4 - 10.5 [facility] Vit B12 SerPl-mCnc >17077.0 pcg/mL Above high normal 025 211 - 911 [facility] T4 Free SerPl-mCnc 1.17 ng/dL Normal 12/15/2024 0.89 - 1. 76 [facility] TSH SerPl DL<=0.005 mIU/L-aCnc 1.31 mcIU/mL Normal 12/15/2024 0.55 - 4.78 [facility] HbA1c MFr Bld 5.4 % Normal 12/15/2024 - 5.7 [facility] Est. average glucose Bld gHb Est-mCnc 108.0 mg/dL Normal 12/15/2024 [facility] LDLc SerPl Calc-mCnc 117.0 mg/dL Above high normal 12/15/2024 0 - 99 [facility] VLDLc SerPl Calc-mCnc 16.4 mg/dL Normal 12/15/2024 [facility] Cholest SerPl-mCnc 203.0 mg/dL Above high normal 12/15/2024 25 - 200 [facility] HDLc SerPl-mCnc 70.0 mg/dL Normal 12/15/2024 60 - [facility] NonHDLc SerPl-mCnc 133.0 mg/dL Normal 12/15/2024 [facility] Trigl SerPl-mCnc 82.0 mg/dL Normal 12/15/2024 - C [facility] Cholest/HDLc SerPl 2.9 Normal 12/15/2024 [facility] Globulin Ser Calc-mCnc 2.2 g/dL Below low normal 12/15/2024 2.3 - 3.5 [facility] ALT SerPl-cCnc 14.0 unit/L Normal 12/15/2024 10 - 49 [facility] Creat SerPl-mCnc 0.73 mg/dL Normal 12/15/2024 0.55 - 1.02 [facility] BUN SerPl-mCnc 25.0 mg/dL Above high normal 12/15/2024 9 - 2 3 [facility] ALP SerPl-cCnc 69.0 unit/L Normal 12/15/2024 46 - 116 [facility] Calcium SerPl-mCnc 9.2 mg/dL Normal 12/15/2024 8.7 - 10.4 [facility] Prot SerPl-mCnc 7.0 g/dL Normal 12/15/2024 5.7 - 8.2 [facility] AST SerPl-cCnc 24.0 unit/L Normal 12/15/2024 - 34 [facility] CO2 SerPl-sCnc 28.0 mmol/L Normal 12/15/2024 20 - 31 [facility] Sodium SerPl-sCnc 142.0 mmol/L Normal 12/15/2024 136 - 14 5 [facility] BUN/Creat SerPl 34.2 Above high normal 12/15/2024 12 - 20 [facility] Chloride SerPl-sCnc 106.0 mmol/L Normal 12/15/2024 98 - 1 07 [facility] Anion Gap SerPl Calc-sCnc 8.0 Normal 12/15/2024 5 - 14 [facility] eGFRcr SerPlBld CKD-EPI 2020 89.0 mL/min/1.73m2 Normal 12/15/2024 - [facility] Potassium SerPl-sCnc 4.0 mmol/L Normal 12/15/2024 3.5 - 5.1 [facility] Bilirub SerPl-mCnc 0.4 mg/dL Normal 12/15/2024 0.2 - 1.1 [facility] Albumin/Glob SerPl 2.2 Above high normal 12/15/2024 1 - 1.7 [facility] Albumin SerPl-mCnc 4.8 g/dL Normal 12/15/2024 3.2 - 4.8 [facility] Glucose SerPl-mCnc 89.0 mg/dL Normal 12/15/2024 70 - 199 [facility] RBC Auto 90.9 FL Normal 12/15/2024 78 - 100 [facility] MCH RBC Qn Auto 28.9 pcg Normal 12/15/2024 27 - 31 [facility] RDW RBC Auto 13.9 % Normal 12/15/2024 11.5 - 14 [facility] WBC # Bld Auto 4.4 K/mcL Normal 12/15/2024 4 - 10.5 [facility] Hct VFr Bld Auto 40.9 % Normal 12/15/2024 37 - 47 [facility] MCHC RBC Auto-EntMCnc 31.8 g/dL Below low normal 12/15/2024 32 - 36 [facility] PMV Bld Auto 10.7 FL Normal 12/15/2024 8.3 - 11.8 [facility] RBC # Bld Auto 4.5 M/mcL Normal 12/15/2024 4.2 - 5.4 [facility] Hgb Bld-mCnc 13.0 g/dL Normal 12/15/2024 12.5 - 16 [facility] Platelet # Bld Auto 241.0 K/mcL Normal 12/15/2024 150 - 4 50 [facility] History of Medication Use Medication Directions Dispensed Refills Start Date End Date Stat cyanocobalamin (VITAMIN B-12) injection 1,000 mcg 12/15/2024 activ e zolpidem (AMBIEN) 10 mg tablet Take 1 tablet (10 mg total) by mouth at bedtime as needed for sleep. Max Daily Amount: 10 mg 12/04/2024 active citalopram (CeleXA) 20 mg tablet Take 1 tablet (20 mg total) by mouth 1 (one) time each day. 11/18/2024 active fluticasone propionate (FLONASE) 50 mcg/actuation nasal spray Administer 1 spray into each nostril 2 (two) times a day. 09/27/2024 active levothyroxine (SYNTHROID, LEVOTHROID) 75 mcg tablet Take 1 tablet (75 mcg total) by mouth 1 (one) time each day. before breakfast 09/20/2024 active sodium chloride 0.9% (NS) infusion 75 mL/hr, Intravenous, Continuous, Starting on Wed08/11/23 at 0800, Pre-Procedure (GI) 08/11/2023 active Sod Picosulfate-Mag Ox-Cit Acd (CLENPIQ) 10-3.5-12 MG-GM -GM/175ML Solution Take as directed 06/15/202308/11 3 aborted iohexol (OMNIPAQUE) 350 mg/mL injection 100 mL 100 mL, Intravenous, Once in imaging, contrast, Starting on Wed01/16/25 at 1034, For 1 dose, Radiology Appointment 03/16/2023 5 completed barium sulfate (READI CAT 2) 2 % suspension 900 mL 900 mL, Oral, Once in imaging, contrast, Starting on Wed03/16/23 at 0934, For 1 dose, Radiology Appointment(2) 450mL Oral, Shake the Readi-Cat 2 bottles well prior to consuming. You may refrigerate. For Inpatients: Have the patient drink 2 bottles with the first bottle completed 90 minutes prior 03/16/2023 3 completed ALPRAZolam (XANAX) 0.25 MG tablet TAKE 1 TABLET (0.25 MG) BY MOUTH EVERY DAY NEEDED 03/10/2023 active estradiol (ESTRACE) 0.5 MG tablet 09/13/2020 3 active zolpidem (AMBIEN) 10 MG tablet 09/11/2020 active citalopram (CeleXA) 20 MG tablet Take 20 mg by mouth daily. 08/10/2020 active levothyroxine (SYNTHROID, LEVOTHROID) 75 MCG tablet TAKE ONE TABLET BY MOUTH DAILY BEFORE BREAKFAST 08/10/2020 active Problems Problem Status Onset Date Problem Type Date of Resolution Source Right upper quadrant abdominal pain active 2025-01-[address] [facility] Elevated alkaline phosphatase level active 2025-03-[address] [facility] Adrenal nodule (CMS/HCC V24) active 2025-01-[address] [facility] B12 deficiency active 2025-02-[address] [facility] Pelvic pressure in female active 2025-01-[address] [facility] Nonintractable headache active 2025-01-[address] [facility] Duodenal diverticulum active 2025-01-[address] [facility] Encounter for screening mammogram for breast cancer active EncounterDiagnosisAct [facility] Immunizations Vaccine Date Source Lot Number Status Influenza trivalent, with pr eservative (Fluzone; Afluria) 6mo and older 06/13/2024 [facility] completed Influenza trivalent, with pr eservative (Fluzone; Afluria) 6mo and older 06/13/2024 [facility] completed Influenza, Quadrivalent (FLU CELVAX) MDCK, Preservative Free IM 06/09/2023 [facility] [id number] completed Influenza, Quadrivalent (FLU ARIX, AFLURIA, FLULAVAL, FLUZONE) Preservative Free IM 06/04/2022 [facility] [id number] completed Influenza High-Dose Quadriva lent,(FLUZONE HIGH-DOSE), Perservative Free IM 0.7 mL 65 years and older 05/16/2021 [facility] [id number] completed Pneumococcal Conjugate 05/16/2021 [facility] co mpleted Pneumococcal Conjugate 05/16/2021 [facility] co mpleted Pneumococcal Conjugate 13-Valent 05[id number] Pneumococcal conjugate 20 va lent (Prevnar 20, PCV 20) 2mo and older 05/16/2021 [facility] comple yuni Pneumococcal conjugate 20 va lent (Prevnar 20, PCV 20) 2mo and older 05/16/2021 [facility] comple yuni Influenza High-Dose Quadriva lent,(FLUZONE HIGH-DOSE), Perservative Free IM 0.7 mL 65 years and older 05/15/2020 [facility] completed Tdap Tetanus diptheria acell ular pertussis (Boostrix; Adacel) 7yo and older 12/25/2014 [facility] completed Tdap Tetanus diptheria acell ular pertussis (Boostrix; Adacel) 7yo and older 12/25/2014 [facility] completed Encounters Encounter Type Encounter Reason Primary Diagnosis Location Date Ambulatory B12 Injection B12 Injection [facility] 04/27/2025 Ambulatory no current diagnosis no current diagnosis [facility] 03/27/2025 Ambulatory Encounter for genera l adult medical examination without abnormal findings Encounter for general adult medical examination without abnormal findings [facility] 03/02/2025 Ambulatory Follow-up Deficiency of ot her specified B group vitamins [facility] 03/02/2025 Ambulatory Follow-up Follow-up [facility] 02/02/2025 Emergency Unspecified abdomina l pain Unspecified abdominal pain [facility] 01/16/2025 Ambulatory Right upper quadrant pain Right upper quadrant pain [facility] 01/09/2025 Ambulatory Follow-up Right upper quad rant pain [facility] 01/09/2025 Ambulatory Encounter for genera l adult medical examination without abnormal findings Encounter for general adult medical examination without abnormal findings [facility] 12/15/2024 Ambulatory Annual Exam Deficiency of ot her specified B group vitamins [facility] 12/15/2024 Ambulatory Encounter for screening mammogram for malignant neoplasm of breast Encounter for screening mammogram for malignant neoplasm of breast [facility] 06/14/2024 Ambulatory Diverticulitis of intestine, part unspecified, without perforation or abscess without bleeding Diverticulitis of intestine, part unspecified, without perforation or abscess without bleeding [facility] 08/11/2023 Ambulatory Age-related osteoporosis without current pathological fracture Age-related osteoporosis without current pathological fracture [facility] 07/09/2023 Ambulatory Encounter for screening mammogram for malignant neoplasm of breast Encounter for screening mammogram for malignant neoplasm of breast [facility] 06/15/2023 Ambulatory Diverticulitis of intestine, part unspecified, without perforation or abscess without bleeding Diverticulitis of intestine, part unspecified, without perforation or abscess without bleeding [facility] 06/15/2023 Ambulatory Unspecified abdomina l pain Unspecified abdominal pain [facility] 03/16/2023 Ambulatory Dizziness and giddiness [facility] 11/05/2022 Ambulatory Encounter for screening mammogram for malignant neoplasm of breast [facility] 06/04/2022 Ambulatory Encounter for screening mammogram for malignant neoplasm of breast [facility] 05/24/2021 Care Team Organization Name Specialty Phone Email Start Date End Da te [facility], [facility] 03/29/2025 [facility] 03/28/2025 [facility] 01/16/2025 02/14/2025 [facility] 12/16/2024 [facility] 12/16/2024 [facility] 12/15/2024 [facility] 12/15/2024 [facility] 06/04/202201/22 [facility] 05/24/2021 06/04/2022
== END 2025-05-25 13:43 | disposition home or self-care (01) ==
LOC: HO.HMCFM 12:31
PROVIDERS: PCP Nurse Practitioner Family; Visit Provider Nurse Practitioner Family
DX: Z76.89 Persons encountering health services in other specified circumstances (principal); Z23 Encounter for immunization; E03.9 Hypothyroidism, unspecified; F41.1 Generalized anxiety disorder; H93.13 Tinnitus, bilateral; Z63.8 Other specified problems related to primary support group; Z80.3 Family history of malignant neoplasm of breast

== ENCOUNTER → 2025-05-25 12:30 | Outpatient (BNVA) | payer MEDICARE, SELFPAY | PROVIDERS: PCP Nurse Practitioner Family; Visit Provider Nurse Practitioner Family | DX: F41.1 Generalized anxiety disorder (principal); F41.9 Anxiety disorder, unspecified; E03.9 Hypothyroidism, unspecified; G47.00 Insomnia, unspecified; H93.13 Tinnitus, bilateral; Z23 Encounter for immunization; Z76.89 Persons encountering health services in other specified circumstances; Z63.8 Other specified problems related to primary support group; Z80.3 Family history of malignant neoplasm of breast; Z78.0 Asymptomatic menopausal state | CPT/HCPCS: 90471; 90472; 90656; 90715; 96127; 99202 ==

== ENCOUNTER 2025-06-11 10:22 | Outpatient (AMB) | payer MEDICARE, SELFPAY ==
--- NOTE | 2025-06-11 10:25 | MHC.PC.OV ---
Vital Signs 06/11/25 10:36 Height 5 ft 1 in Weight 116 lb 8 oz BMI 22.0 BP 119/61 Blood Pressure Location Rt brachial Position Sitting Respiration 16 Pulse 69 Pulse Source Pulse Oximeter Temp 98.2 F Temp Source Temporal Artery Scan Pulse Oximetry (%) 99 Oxygen Delivery Method Room Air Intake Visit Reasons: Sinus Infection Intake Note: patient here c/o sinus infection for 3 days and she tested herself for COVID and it was NEG Cryogenic Transport Driver Required: No Is last menstrual period known: No Post menopausal: No Patient : No Allergies No Known Allergies Allergy (Verified 06/11/25 11:05) Medication List - Last Reconciled 06/11/25 by Marianna Perez CNP cholecalciferol (vitamin D3) 125 mcg PO DAILY citalopram 20 mg PO DAILY cyanocobalamin (vitamin B-12) 1,000 mcg IM QMONTH estradiol (Yuvafem) mcg vaginal levothyroxine 75 mcg PO QAM metronidazole 0.75% topical BID syringe with needle (BD Luer-Aguilar Syringe) As directed zolpidem 10 mg PO BEDTIME PRN Tobacco use date assessed: 06/11/25 Fall risk assessment: No Falls in past year Last assessed Fall Risk: 06/11/25 Dental Screening Dental Screen Date: 06/11/25 Did you have a dental visit in the last 12 months?: Yes Did you have a dental problem in the last 6 months where you did not have access to dental care?: No Was dental information given to patient?: Patient has dentist HPI HPI Comments History of Present Illness Details 69-year-old female presents with complaints of frontal sinus headache for the past 4 days. She notes that the pain is so bad she is unable to sleep at night. She endorses associated pressure in her ears and frontal sinuses. No fever, chills, runny nose, sore throat, body aches, fatigue, or weakness. Tylenol, aleve, and otc sinus regimen have not provided relieved. She had 3 negative home covid tests. Denies sick contacts. [facility] Surgical History (Updated 05/25/25 @ 13:05 by Blossom Call, HEALTH INFORMATION DIRECTOR-) S/P benoit Hx of appendectomy S/P WENDY (total abdominal hysterectomy) Hx of tonsillectomy Family History Mother High blood pressure Father High blood pressure Melanoma Son Substance abuse Daughter Mental health problem Social History Housing: House Alcohol intake: current Alcohol intake frequency: a few times a month Patient Tobacco Use Status: Former Tobacco user Years Smoked: 20 e-Cigarette/Vaping Use: Never Used Patient : No service: No Current occupational status: retired Current occupational exposures/hazards: No Cognitive needs: No Hearing needs: No Vision needs: Yes Questionnaire Thrive Questionnaire Date Thrive assessed: 04/16/25 I am a: Patient What is your living situation today?: I have a steady place to live Within the past 12 months, did the food you bought not last and you didn't have the money to get more?: Never true Within the past 12 months, did you worry whether your food would run out before you got money to buy more?: Never true Do you have trouble paying for medicines?: No Do you have trouble getting transportation to medical appointments?: No Do you have trouble paying your heating and electricity bill?: No Do you have trouble taking care of your child, family member or friend?: No Do you have trouble with day-to-day activities such as bathing, preparing meals, shopping, managing finances, etc.?: No Are you currently unemployed and looking for a job?: Yes Are you interested in more education?: No Please select the resources that you would like help with: None Currently or been in a relationship where the following occur: No concerns reported THRIVE Score: 0 KARLENE-7 AMB Questionnaire KARLENE-7 Date KARLENE - 7 assessed: 05/25/25 Source: Developed by Drs. Alfredo Dickey, Janet Samayoa, Raul Vargas and colleagues, with an educational annika from [employer]. Review of Systems Const Details: Denies chills, Denies fatigue, Denies fever(s), Reports headache(s) and Denies weakness HEENT Reports as per HPI Card Denies chest pain, Denies lightheadedness, Denies dyspnea and Denies other (palpitations) Resp Denies cough, Denies dyspnea and Denies wheezing GI Denies abdominal pain, Denies melena, Denies hematochezia, Denies change in bowel habits, Denies dyspepsia and Denies nausea Denies hematuria and Denies dysuria Musc Denies abnormal gait, Denies myalgias, Denies arthralgias, Denies numbness and Denies tingling Skin/Breast Denies rash, Denies unusual bruising and Denies wounds Neuro Denies abnormal gait, Denies dizziness, Reports headache(s), Denies memory loss, Denies numbness, Denies Sensory deficit (Neuro), Denies tingling and Denies weakness Psych Denies anxiety, Denies depression and Denies memory loss Endo Denies cold intolerance, Denies fatigue, Denies heat intolerance, Denies polydipsia and Denies polyuria Jonny/Lymph Denies easy bleeding and Denies easy bruising Aller/Immun Denies wheezing Physical exam (Primary Care) Vital Signs: Last Vital Signs Temp 98.2 F 06/11/25 10:36 Pulse 69 06/11/25 10:36 Resp 16 06/11/25 10:36 BP 119/61 06/11/25 10:36 Pulse Ox 99 06/11/25 10:36 Oxygen Delivery Method Room Air 06/11/25 10:36 BMI result Body Mass Index 22.0 Tobacco/Smoking Status: Tobacco use Status Tobacco use date assessed 06/11/25 06/11/25 10:40 Patient Tobacco Use Status Former Tobacco user 06/11/25 10:27 e-Cigarette/Vaping Use Never Used 06/11/25 10:27 Thrive Assessment: Date of Thrive Assessment Date Thrive assessed 04/16/25 06/11/25 10:27 Currently or been in a relationship where the following occur: No concerns reported Const Other: General: no acute distress, well developed, alert and awake Nutritional Appearance: well nourished Orientation/consciousness: patient oriented x3 HENMT Head is normocephalic. Frontal and maxillary sinus tenderness to palpation Bilateral ear canal and TM are normal Nasal turbinates are pink and moist with mild edema Oropharynx is pink and moist Sinuses are nontender with palpation No auricular or cervical lymphadenopathy Ears: hearing grossly normal bilaterally and TM's normal bilaterally General nose exam: Normal external nose present and Normal nares present Mouth: Normal oral and palatal mucosa present and moist mucous membranes Teeth and gingiva: dentition normal Throat: Yes oropharynx normal Eyes Pupils: Equal, round and reactive pupils present and Pupil accommodation reflex normal EOM: EOMs intact bilaterally Neck Neck: Yes normal visual inspection, Yes no lymphadenopathy and Yes trachea midline Thyroid: Thyroid normal Carotids: no bruits Lymphatic: no lymphadenopathy noted Chest Chest palpation & inspection: normal inspection of the chest Resp Effort & Inspection: normal respiratory effort Auscultation: clear to auscultation bilaterally Cardio Rate: regular rate Rhythm: regular rhythm Heart sounds: S1 normal heart sound present, S2 normal heart sound present, no gallops, no murmurs and no rubs Bruits: no abdominal aortic bruits and no carotid bruits GI Palpation (GI): No Abdominal aortic bruit present, Soft to palpation, nontender, No hepatosplenomegaly present and No Rebound tenderness present Auscultation: normal bowel sounds General: Yes no CVA tenderness Back/Spine/Pelvis Back: no CVA tenderness Cervical Spine: cervical ROM normal and No Cervical spine tenderness Thoracic/Lumbar Spine: thoraco-lumbar ROM normal, No pain with thoraco-lumbar ROM, No thoracic spinal tenderness and No lumbar spinal tenderness Skin General: warm and dry. Normal skin color. Normal skin turgor General: patient oriented x3, gait normal and CN's II-XI intact bilaterally Cranial nerves: Yes Equal, round and reactive pupils present Cognition (Neuro): normal cognition Gait exam (Neuro): Normal gait present Motor exam (neuro): 5/5 motor strength present throughout Sensory Exam: No Sensory deficit (Neuro) Deep tendon reflexes (DTR's): Right patellar reflex intensity grade: 2+ and Left patellar reflex intensity grade: 2+ Extrem General: Yes normal to inspection, No edema and No calf tenderness Psych Appearance: grossly normal Affect: normal affect Attitude: cooperative Thought process: Normal thought process present Coding Level of Care Code Est Pt Level 4 (10147) Diagnoses Sinusitis J32.9 Assessment & Plan Assessment & Plan (1) Sinusitis: Code(s): J32.9 - Chronic sinusitis, unspecified Category: Medical Plan: Nasal turbinate pink and moist with slight edema. Frontal and maxillary sinuse tender to palpation. No overt viral illness. Z-Mario, cetirizine, and Flonase as prescribed. Declines viral testing for COVID/flu/RSV. Follow-up with worsening or new symptoms. Verbalized understanding and agreed with the plan. Medications: New azithromycin (Zithromax Z-Mario) For 250 mg dose pack: take 500 mg today (day 1), then 250 mg for 4 days (days 2-5) PO 6 tabs 0RF fluticasone propionate 50 mcg/actuation (Flonase Allergy Relief) administer into each nostril 1 spray intranasal DAILY 16 grams 0RF cetirizine 10 mg PO DAILY 30 tabs 0RF 30 days
[2025-06-11 10:36] VITALS: BP 119/61; PULSE 69; RESP 16; TEMP 36.8; O2SAT 99; BMI 22.0
--- OUTSIDE RECORDS SUMMARY | 2025-06-11 12:05 | XMS_ITS | Clinical Summary ---
Author Organization [facility] Address [address] [place] [id number] Care Team Providers Care Construction Grip Name Role Phone Carlo Brito MD Primary [...] 05/24, 06/04/2022, Additional history exists RSV Vaccine 50 years and older and Patients (1 - 1-dose 75+ series) 2029 Colonoscopy 08/11/2033 08/11/2023, 08/11/2023 Hepatitis B Vaccines Aged Out No long er eligible based on patient's age to complete this topic Medical Devices Implanted Type Area Plumbing Assembler Installer Device Identifier Shelf Expiration Date Model / Serial / Lot Lens Iol 0 D +22.5 Edmundo Mod L Bcnvx 13mm 6mm Posterior - [id number] Implanted:Qty: 1 on 08/04/2017 by Roque Clement MD at [facility] [place], [place] [employer] [id number] .225 / [id number] / Lens Iol 0 D +21.5 Edmundo Mod L Bcnvx 13mm 6mm Posterior - [id number] Implanted:Qty: 1 on 05/25/2018 by Roque Clement MD at [facility] [place], [place] [employer] [id number] .215 / [id number] / Procedures Procedure Name Priority Date/Time Associated [...] PM EDT Screening digital mammogram with CAD [id number] History: Screening Comparison: Dating back 02/13/2019 Breast [...] data values and impression. Carlo Brito MD [facility] DXA ORDERABLES Final Re sult from Last 3 Months or Most Recently Relevant to Health Maintenance Insurance [employer] M[employer] MEDICARE MEDICARE PART A & B [facility] MEDICARE [facility] MEDICARE Care Teams Construction Grip Relationship Specialty Start Date End Date Carlo Brito MD PCP - General Internal Medicine 04/30/17
--- OUTSIDE RECORDS SUMMARY | 2025-06-11 12:05 | XMS_ITS | Clinical Summary ---
Author Organization [facility] [address] [facility] Address [address] [place] [address] Phone Care Team Providers Care Graphics Production Specialist Name Role Phone Carlo Brito MD Primary Care Provider [phone] Allergies No known active allergies Medications citalopram [...] Team Description 05/22/2025 Telephone [facility] [place] [address] [place] [address] Sharon Sampson MA 04/27/2025 1:45 PM EDT Clinical Support [facility] [place] [address] [place] [address] 04/02/2025 Telephone [facility] [place] [address] [place] [address] Beatris Luz MA from Last 3 Months Immunizations Immunization Administration [...] 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 Not on file Not [...] Procedure Name Priority Date/Time Associated Diagnosis Comments LIPID PANEL WITH REFLEX TO DIRECT LDL Routine 12/15/2024 9:35 AM EDT Adult general medical examination EXTERNAL MAMMOGRAM REPORT Routine 06/14/2024 9:17 AM EDT EXTERNAL COLONOSCOPY REPORT Routine 08/11/2023 9:10 AM EST HM HEPATITIS C SCREENING Routine 05/23/2015 from Last 3 Months or Most Recently Relevant to Health Maintenance Results * (ABNORMAL) Lipid panel with reflex to direct LDL (12/15/2024 9:35 AM EDT) Cholesterol 203(H) 25 - 200 mg/dL LAB CHEMISTRY METHOD 12/15/2024 3:54 PM EDT [facility] Triglycerides 82 See Comment mg/dL LAB CHEMISTRY METHOD 12/15/2024 3:54 PM EDT [facility] HDL 70 >60 mg/dL LAB CHEMISTRY METHOD 12/15/2024 3:54 PM EDT [facility] LDL Calculated 117(H) 0 - 99 mg/dL LAB CHEMISTRY METHOD 12/15/2024 3:54 PM EDT [facility] VLDL Cholesterol Erasmo 16.4 mg/dL LAB CHEMISTRY METHOD 12/15/2024 3:54 PM EDT [facility] Non HDL Chol. (LDL+VLDL) 133 mg/dL LAB CHEMISTRY METHOD 12/15/2024 3:54 PM EDT [facility] Chol/HDL Ratio 2.9 LAB CHEMISTRY METHOD 12/15/2024 3:54 PM EDT [facility] Blood Venous blood specimen / Unknown Venipuncture / Unknown 12/15/2024 9:35 AM EDT 12/15/2024 9:35 AM EDT Narrative [facility] - 12/15/2024 3:54 PM EDT CHOLESTEROL [...] mg/dL Very High Risk RISK ASSESSMENT MALE: 1/2 AVERAGE: 3.43 AVERAGE: 4.97 2X AVERAGE: 9.55 3X AVERAGE: 23.39 FEMALE: 1/2 AVERAGE: 3.27 AVERAGE: 4.44 2X AVERAGE: 7.05 3X AVERAGE: 11.04 Carlo Brito MD LAB BLOOD ORDERABLES Final Result [facility] [address] [place] [address], [place] [phone] * External Mammogram Report (06/14/2024 9:17 AM [...] to Health Maintenance Insurance [employer] MEDICARE ADVANTAGE Care Teams Graphics Production Specialist Relationship Specialty Start Date End Date Carlo Brito MD [address] [place] [address] PCP - General Internal Medicine 11/22/24
--- OUTSIDE RECORDS SUMMARY | 2025-06-11 12:05 | XMS_ITS | Encounter Summary ---
Author Organization [facility] Address [address] [place] [address] Care Team Providers Care Commercial Construction Superintendent Name Role Phone Carlo Brito MD Primary Care Provider [phone] Encounter Details Date Type Department Care Team (Late st Contact Info) Description 08/11/2023 Scanned Document [facility] ENDO PROC [address] [id number] Rudi Mathur MD [address] [place] [id number] Social History Tobacco Use Types Packs/Day Years [...] on filedocumented in this encounter Care Teams Commercial Construction Superintendent Relationship Specialty Start Date End Date Carlo Brito MD PCP - General Internal Medicine 04/30/17 documented as of this encounter
== END 2025-06-11 14:30 | disposition home or self-care (01) ==
LOC: HO.HMCFM 10:23
PROVIDERS: PCP Nurse Practitioner Family; Visit Provider Nurse Practitioner Family
DX: J32.9 Chronic sinusitis, unspecified (principal)

== ENCOUNTER → 2025-06-11 10:22 | Outpatient (BNVA) | payer MEDICARE, SELFPAY | PROVIDERS: PCP Nurse Practitioner Family; Visit Provider Nurse Practitioner Family | DX: J32.9 Chronic sinusitis, unspecified (principal) | CPT/HCPCS: 99212 ==